=== PATIENT | female | born 1995 | race Caucasian/White ===

== ENCOUNTER 2023-01-24 23:32 | Emergency (ER) | payer MEDICAID ==
[~2023-01-24] VITALS: Ht 165.1 cm; Wt 63.5 kg
[2023-01-24 23:40] VITALS: BP_SYST 104; PULSE 59; RESP 18; TEMP 98.1; O2SAT 98
[2023-01-25 00:52] LABS: BILIRUBIN,URINE NEGATIVE (NEGATIVE); CLARITY/URINE Clear (CLEAR); COLOR,URINE YELLOW (YELLOW); GLUCOSE,URINE NEGATIVE (NEGATIVE); KETONES,URINE 1+ (NEGATIVE); LEUKOCYTE ESTERASE ,URINE 1+ (NEGATIVE); NITRITE, URINE NEGATIVE (NEGATIVE); PROTEIN URINE 1+ (NEGATIVE); UROBILINOGEN,URINE 0.2 (0.2-1.0)
[2023-01-25 00:56] LABS: BLOOD, URINE TRACE (NEGATIVE)
[2023-01-25 01:15] LABS: BACTERIA,URINE FEW /HPF (None Seen)
[2023-01-25] MEDS ORDERED: ACETAMINOPHEN 500 MG TABLET PO ONE (01:45)
[2023-01-25] MEDS ORDERED: cephALEXin 500 MG CAPSULE PO ONE (01:45)
[2023-01-25] MEDS ORDERED: FAMOTIDINE 20 MG TABLET PO ONE (01:45)
[2023-01-25] MEDS ORDERED: ONDANSETRON 4 MG ODT TAB PO ONE (01:45)
[2023-01-25] MEDS ORDERED: PHENAZOPYRIDINE HCL 100 MG TABLET PO ONE (01:45)
[2023-01-25 01:47] LABS: BASOPHILS # (AUTO) 0.1 K/uL (0.0-0.2); BASOPHILS % (AUTO) 0.8 % (0.0-2.0); EOSINOPHILS # (AUTO) 0.1 K/uL (0.0-0.4); EOSINOPHILS % (AUTO) 1.2 % (0.0-4.0); HEMATOCRIT 38.8 % (36-48); HEMOGLOBIN 13.6 g/dL (12.0-16.0); LYMPHOCYTES # (AUTO) 2.9 K/uL (1.0-5.5); LYMPHOCYTES % (AUTO) 40.5 % (20.5-51.5); MEAN CORPUSCULAR HEMOGLOBIN 30 pg (27-31); MEAN CORPUSCULAR HGB CONC 35 % (32-36); MEAN CORPUSCULAR VOLUME 86 fL (79.0-98.0); MONOCYTES # (AUTO) 0.8 K/uL (0.0-1.0); MONOCYTES % (AUTO) 10.8 % (1.7-9.3); NEUTROPHILS # (AUTO) 3.3 K/uL (1.8-7.7); NEUTROPHILS % (AUTO) 46.7 % (40.0-70.0); PLATELET COUNT (AUTO) 258 K/uL (130-430); RED CELL DISTRIBUTION WIDTH 12.8 % (9.0-15.0); WHITE BLOOD COUNT (AUTO) 7.1 K/uL (4.8-10.8)
[2023-01-25 02:06] LABS: ALBUMIN 3.9 g/dL (3.4-4.8); CALCIUM 8.5 mg/dL (8.4-11.0); CREATININE 0.61 mg/dL (0.55-1.30); POTASSIUM 3.4 mmol/L (3.5-5.1); TOTAL BILIRUBIN 0.6 mg/dL (0.0-1.0); TOTAL PROTEIN, SERUM 7.4 g/dL (6.4-8.3)
[2023-01-25] MEDS ORDERED: PHEN-726 PO (02:08)
[2023-01-25] MEDS ORDERED: FAMO-132 PO (02:08)
[2023-01-25] MEDS ORDERED: CEPH-548 PO (02:08)
[2023-01-25] MEDS ORDERED: ONDA-8 TL (02:08)
[2023-01-25 02:48] VITALS: BP_SYST 120; PULSE 69; RESP 20; TEMP 97.7; O2SAT 98
== END 2023-01-25 02:48 | disposition home or self-care (01) ==
LOC: SED 23:32
DX: N39.0 Urinary tract infection, site not specified (principal); A08.4 Viral intestinal infection, unspecified; K21.9 Gastro-esophageal reflux disease without esophagitis; E87.6 Hypokalemia; R11.2 Nausea with vomiting, unspecified; R10.30 Lower abdominal pain, unspecified; Z79.899 Other long term (current) drug therapy
CPT/HCPCS: 99284; 80053; 81000; 83690; 85025; 87086; 36415; 81025; Q0162

== ENCOUNTER 2023-05-31 21:20 | Emergency (ER) | payer MEDICAID, OTHER ==
[~2023-05-31] VITALS: Ht 165.1 cm; Wt 60.3 kg
[~2023-05-31 21:20] MED LIST: CEPH-548 PO; FAMO-132 PO; ONDA-8 TL; PHEN-726 PO
[2023-05-31 21:28] VITALS: BP_SYST 104; PULSE 62; RESP 20; TEMP 97.2; O2SAT 99
[2023-05-31 22:47] LABS: BILIRUBIN,URINE NEGATIVE (NEGATIVE); BLOOD, URINE NEGATIVE (NEGATIVE); COLOR,URINE YELLOW (YELLOW); GLUCOSE,URINE NEGATIVE (NEGATIVE); KETONES,URINE TRACE (NEGATIVE); LEUKOCYTE ESTERASE ,URINE NEGATIVE (NEGATIVE); NITRITE, URINE NEGATIVE (NEGATIVE); PROTEIN URINE NEGATIVE (NEGATIVE)
[2023-05-31 22:50] LABS: CLARITY/URINE HAZY (CLEAR)
[2023-05-31 23:12] VITALS: BP_SYST 104; PULSE 62; RESP 20; TEMP 97.2; O2SAT 99
== END 2023-05-31 23:12 | disposition home or self-care (01) ==
LOC: SED 21:20
DX: J06.9 Acute upper respiratory infection, unspecified (principal); H92.03 Otalgia, bilateral; J02.9 Acute pharyngitis, unspecified; Z79.899 Other long term (current) drug therapy
CPT/HCPCS: 81001; 81003; 81025; 99283